=== PATIENT | female | born 1955 | race Two or more races ===

== ENCOUNTER 2020-05-17 20:44 | Emergency (ER) | payer BC ==
[2020-05-17 21:24] VITALS: BP 147/60; PULSE 78; TEMP 97.8; BMI 53.1
== END 2020-05-17 22:19 | disposition home or self-care (01) ==
LOC: JER 20:44
DX: R51.9 Headache, unspecified (principal); U07.1 COVID-19
CPT/HCPCS: 99281-25; C9803; U0003